=== PATIENT | female | born 1995 ===

== ENCOUNTER → 2021-08-11 | Outpatient (CLI) | payer SELFPAY ==
[2021-08-12 11:04] LABS: Candida species (DNA Probe) Negative (NEGATIVE); G. vaginalis (DNA Probe) Negative (NEGATIVE); T. vaginalis (DNA Probe) Negative (NEGATIVE)
== END | disposition home or self-care (01) ==
LOC: LAB SHORT 10:53
PROVIDERS: Family Medicine
DX: N76.0 Acute vaginitis (principal); R30.9 Painful micturition, unspecified
CPT/HCPCS: 87086; 87480; 87510; 87660

== ENCOUNTER → 2021-09-09 | Outpatient (CLI) | payer OTHER ==
[2021-09-09 15:54] LABS: Source, Urine Clean Catch
[2021-09-09 19:44] LABS: Bacteria Rare /hpf; Red Blood Cells, Urine 0-2 /hpf (0-2); Squamous Epithelial Cells Rare /hpf (Few); White Blood Cells, Urine 0-2 /hpf (0-5)
== END | disposition home or self-care (01) ==
LOC: EDSTATUS 08:43 → LAB SHORT 15:46 → LAB 15:46
PROVIDERS: Family Medicine
DX: R30.9 Painful micturition, unspecified (principal)
CPT/HCPCS: 81015; 87086

== ENCOUNTER 2024-03-20 06:58 | Inpatient (IN) | payer OTHER ==
[2024-03-20] VITALS (33 sets, daily range): BP systolic 110–145; BP diastolic 58–85
[~2024-03-20] VITALS: Ht 162.6 cm; Wt 70.9 kg
[2024-03-20] MEDS ORDERED: Lactated Ringer's 1,000 ML IV PRN (07:20)
[2024-03-20] MEDS ORDERED: Bupivacaine HCl 2.5 MG/ML 10ML P/F Injection XX SCH (07:20)
[2024-03-20] MEDS ORDERED: Oxytocin 10 Unit / ML Vial IM SCH (07:20)
[2024-03-20] MEDS ORDERED: FentaNYL 2mcg/ml-Bup 0.1% Epd 250 ML EPI PRN (07:20)
[2024-03-20] MEDS ORDERED: Castor Oil 59.146 ML BTL TOP SCH (07:20)
[2024-03-20] MEDS ORDERED: Methylergonovine Maleate 0.2MG / ML 1ML Amp IM SCH (07:20)
[2024-03-20] MEDS ORDERED: Lidocaine HCl 1% 30 ML SDV XX SCH (07:20)
[2024-03-20] MEDS ORDERED: ePHEDrine Sulfate 50 MG/ML 1ML Injection XX PRN (07:20)
[2024-03-20] MEDS ORDERED: LR Oxytocin 20 Units 1,000 ML IV SCH ×2 (07:20→16:50)
[2024-03-20] MEDS ORDERED: Misoprostol 200 MCG Tab PR SCH (07:20)
[2024-03-20] MEDS ORDERED: Bupivacaine 0.5% HCl 5 MG/ML 30MLVIAL XX SCH (07:20)
[2024-03-20] MEDS ORDERED: Lactated Ringer's 1,000 ML IV SCH ×3 (07:20→16:50)
[2024-03-20 07:41] LABS: BASOPHILS ABSOLUTE AUTO 0.03 K/mm3 (0.00-0.23); BASOPHILS PERCENT AUTO 0 % (0-2); EOSINOPHILS ABSOLUTE AUTO 0.06 K/mm3 (0.00-0.68); EOSINOPHILS PERCENT AUTO 1 % (0-6); Hematocrit 37.2 % (33.0-51.0); Hemoglobin 12.8 g/dL (11.5-16.0); IMMATURE GRAN ABSOLUTE AUTO 0.05 K/mm3 (0.00-0.10); IMMATURE GRAN PERCENT AUTO 1 % (0-1); LYMPHOCYTES ABSOLUTE AUTO 2.34 K/mm3 (0.84-5.20); LYMPHOCYTES PERCENT AUTO 28 % (21-46); MONOCYTES ABSOLUTE AUTO 0.52 K/mm3 (0.16-1.47); MONOCYTES PERCENT AUTO 6 % (4-13); Mean Corpuscular HGB 31.4 pg (26.0-34.0); Mean Corpuscular HGB Conc 34.4 g/dL (31.5-36.5); Mean Corpuscular Volume 91 fL (80-100); Mean Platelet Volume 11.7 fL (9.1-12.4); NEUTROPHILS PERCENT AUTO 65 % (41-73); Platelet Count 219 K/mm3 (150-400); RDW Coefficient Variation 13.1 % (11.7-14.2); RDW Standard Deviation 43.3 fL (35.1-46.3); Red Blood Cell Count 4.08 M/mm3 (3.80-5.20)
[2024-03-20] MEDS ORDERED: PRENATAL TABLE1 EAC9 PO (08:05)
[2024-03-20] MEDS ORDERED: Ondansetron HCl 2 MG / ML 2ML Vial IV PRN (08:45)
[2024-03-20] MEDS ORDERED: Acetaminophen 325 MG TABLET PO PRN ×2 (08:45→16:45)
[2024-03-20] MEDS ORDERED: Calcium Carbonate 500 MG Tab Chew PO PRN (08:45)
[2024-03-20] MEDS ORDERED: FentaNYL Citrate 50 MCG/ML 2 ML Injection IV PRN (08:45)
[2024-03-20] MEDS ORDERED: Methylergonovine Maleate 0.2MG / ML 1ML Amp IM PRN (16:45)
[2024-03-20] MEDS ORDERED: Misoprostol 200 MCG Tab PR PRN (16:45)
[2024-03-20] MEDS ORDERED: Ibuprofen 400 MG Tab PO PRN (16:45)
[2024-03-20] MEDS ORDERED: Lanolin Cream TOP PRN (16:45)
[2024-03-20] MEDS ORDERED: Benzocaine Topical Anesthetic Spray 60GM TOP PRN (16:45)
[2024-03-20] MEDS ORDERED: Witch Hazel/Glycerin PADS TOP PRN (16:50)
[2024-03-20] MEDS ORDERED: Docusate Sodium 100 MG Cap PO PRN (16:50)
[2024-03-20] MEDS ORDERED: Ketorolac Tromethamine 30mg Vial IV PRN (17:00)
[2024-03-20] MEDS ORDERED: Ketorolac Tromethamine 30mg Vial IV ONE (17:00)
[2024-03-21 05:20] VITALS: BP 108/74
[2024-03-21 08:29] VITALS: BP 128/78
[2024-03-21] MEDS ORDERED: Prenatal Vit/FE Fumarate/FA 1 Tab PO SCH (09:00)
[2024-03-21 13:00] VITALS: BP 126/81
== END 2024-03-21 16:55 | disposition home or self-care (01) | DRG 807 ==
LOC: OBS 06:58 → BC 07:01 → OBS 07:09 → BC 07:10
PROVIDERS: ADMIT Advanced Practice Midwife
PROC: 10E0XZZ Delivery of Products of Conception, External Approach (ICD-10-PCS; principal; 2024-03-20)
PROC: 0KQM0ZZ Repair Perineum Muscle, Open Approach (ICD-10-PCS; 2024-03-20)
PROC: 3E0R3BZ Introduction of Anesthetic Agent into Spinal Canal, Percutaneous Approach (ICD-10-PCS; 2024-03-20)
PROC: 00HU33Z Insertion of Infusion Device into Spinal Canal, Percutaneous Approach (ICD-10-PCS; 2024-03-20)
DX: O48.0 Post-term pregnancy (principal); Z37.0 Single live birth; O69.81X0 Labor and delivery complicated by cord around neck, without compression, not applicable or unspecified; Z3A.41 41 weeks gestation of pregnancy; Z79.899 Other long term (current) drug therapy; O99.814 Abnormal glucose complicating childbirth; Z87.59 Personal history of other complications of pregnancy, childbirth and the puerperium; O70.1 Second degree perineal laceration during delivery
CPT/HCPCS: 36415; 51702; 85025; 86850; 86900; 86901; A9270; J1885; J2590; J7120

== ENCOUNTER → 2024-05-01 | Outpatient (CLI) | payer OTHER ==
[~2024-05-01] MED LIST: PRENATAL TABLE1 EAC9 PO
== END ==
LOC: LAB 11:42 → LAB SHORT 11:42
PROVIDERS: Advanced Practice Midwife
DX: Z01.419 Encounter for gynecological examination (general) (routine) without abnormal findings (principal)
CPT/HCPCS: G0123

== ENCOUNTER → 2024-05-11 | Outpatient (CLI) | payer OTHER | LOC: LAB 11:33 → LAB SHORT 11:33 | DX: N39.0 Urinary tract infection, site not specified (principal) | CPT/HCPCS: 87077; 87086; 87186 ==

== ENCOUNTER → 2025-05-28 | Outpatient (CLI) | payer OTHER ==
[2025-05-28 12:59] LABS: Source, Urine Clean Catch
[2025-05-28 14:54] LABS: Red Blood Cells, Urine 0-2 /hpf (0-2); White Blood Cells, Urine 0-2 /hpf (0-5)
[2025-05-28 14:59] LABS: U Amphetamine Screen Not Detected; U Barbituate Screen Not Detected; U Benzodiazapine Screen Not Detected; U Buprenorphine Screen Not Detected; U Cannabinoids Screen Not Detected; U Cocaine Screen Not Detected; U Methadone Screen Not Detected; U Methamphetamine Screen Not Detected; U Opiates Screen Not Detected; U Oxycodone Screen Not Detected; U Phencyclidine Screen Not Detected
== END ==
LOC: LAB 12:57 → LAB SHORT 12:57
PROVIDERS: Advanced Practice Midwife
DX: Z34.81 Encounter for supervision of other normal pregnancy, first trimester (principal)
CPT/HCPCS: 81015; 87086

== ENCOUNTER → 2025-10-09 | Outpatient (CLI) | payer OTHER ==
[2025-10-09 16:31] LABS: Bacterial Vaginosis PCR Negative (NEGATIVE); Candida Group, PCR NOT DETECTED (NOT DETECT); Candida glabrata-krusei, PCR NOT DETECTED (NOT DETECT)
== END ==
LOC: LAB 10:17 → LAB SHORT 10:17
PROVIDERS: Advanced Practice Midwife
DX: N76.0 Acute vaginitis (principal)
CPT/HCPCS: 81515